=== PATIENT | female | born 1960 | race Caucasian/White ===

== ENCOUNTER → 2017-01-21 | Outpatient (CLI) | payer SELFPAY ==
[~2017-01-21] MED LIST: MOTRIN 400400 MG/TAB PO; PAXIL 10MG10 MG PO; ZOCOR 10MG10 MG PO
== END ==
LOC: MC.RAD 11:16
DX: Z12.31 Encounter for screening mammogram for malignant neoplasm of breast (principal)

== ENCOUNTER → 2018-12-21 | Outpatient (CLI) | payer SELFPAY | LOC: MC.RAD 16:11 | DX: Z12.31 Encounter for screening mammogram for malignant neoplasm of breast (principal) ==

== ENCOUNTER → 2021-03-24 | Outpatient (CLI) | payer SELFPAY | LOC: MC.RAD 15:39 | DX: Z12.31 Encounter for screening mammogram for malignant neoplasm of breast (principal) ==

== ENCOUNTER → 2022-11-23 | Outpatient (CLI) | payer SELFPAY | LOC: MC.RAD 15:30 | DX: Z12.31 Encounter for screening mammogram for malignant neoplasm of breast (principal) ==